=== PATIENT | female | born 1940 | race Caucasian/White ===

== ENCOUNTER 2018-05-31 09:08 | Inpatient (IN) ==
[~2018-05-31 09:08] MED LIST: CEFUROXIME INJ 1,500 MG in SYRINGE 1 EACH IV ONE; CHLORHEXIDINE 4% SOLN 118 ML BOTTLE TOP SCH; DEXTROSE 50% 25 GM/50 ML VIAL IV PRN; GLUCAGON 1 MG VIAL IM PRN
[2018-05-31 10:02] LABS: Basophils # 0.1 10*3/uL (0.0-0.2); Basophils % 0.8 % (0.0-0.8); Eosinophils # 0.6 10*3/uL (0.0-0.87); Eosinophils % 8.5 % (0.00-10.9); Hematocrit 36.8 VOL% (35.7-47.0); Hemoglobin 12.1 GM/DL (12.0-16.0); Immature Granulocytes % 0.4 %; Immature Granulocytes Absolute 0.03 #; Lymphocytes # 1.9 10*3/uL (1.4-4.0); Lymphocytes % 25.2 % (21.3-54.2); Mean Corpuscular HGB Conc 32.9 GM/DL (32-36); Mean Corpuscular Hemoglobin 31 PG (27-34); Mean Corpuscular Volume 93.4 FL (87-102); Mean Platelet Volume 9.6 FL (9.6-12.0); Monocytes # 0.5 10*3/uL (0.11-0.8); Monocytes % 6.7 % (1.7-12.7); Neutrophils # 4.3 10*3/uL (1.4-7.4); Neutrophils % 58.4 % (38.7-73.9); Platelet Count 225 T/CUMM (130-400); Red Blood Count 3.94 MC/CUMM (3.8-5.5); Red Cell Distribution Width 13.2 % (9.3-17.3); White Blood Count 7.3 T/CUMM (4-12)
[2018-05-31 10:30] LABS: Albumin 3.4 G/DL (3.4-5.0); Bilirubin,Total 0.4 MG/DL (0.2-1.0); Calcium 8.8 MG/DL (8.5-10.1); Potassium 3.3 MMOL/L (3.5-5.1); Total Protein 7.5 G/DL (6.4-8.3)
[2018-05-31] MEDS ORDERED: tiZANidine 4 MG TABLET PO PRN (13:00)
[2018-05-31] MEDS ORDERED: LACTATED RINGERS 1,000 ML IV SCH (15:00)
[2018-05-31] MEDS: SODIUM CHLORIDE 0.9% 1,000 ML IV SCH ×3 (17:20→17:24)
[2018-05-31] MEDS: GABAPENTIN 300 MG CAPSULE PO SCH ×6 (17:21→21:20)
[2018-05-31] MEDS: DONEPEZIL 10 MG TABLET PO SCH ×5 (17:21→21:21)
[2018-05-31] MEDS: ESTROGENS (CONJ) 0.3 MG TABLET PO SCH ×4 (17:21→21:22)
[2018-05-31] MEDS: CHLORHEXIDINE 0.12% ORAL RINSE 60 ML BOTTLE SWISH/SPIT SCH ×5 (17:21→22:37)
[2018-05-31] MEDS: CARVEDILOL 3.125 MG TABLET PO SCH ×6 (17:21→21:20)
[2018-05-31] MEDS: ISOSORBIDE MONONITRATE 30 MG TABLET PO SCH ×2 (17:22→17:27)
[2018-05-31] MEDS: MIRTAZAPINE 30 MG TABLET PO SCH ×4 (17:22→21:17)
[2018-05-31] MEDS: LOSARTAN 50 MG TABLET PO SCH ×2 (17:22→17:27)
[2018-05-31] MEDS: LINACLOTIDE 145 MCG CAPSULE PO SCH ×3 (17:22→17:27)
[2018-05-31] MEDS: FLUoxetine 20 MG CAPSULE PO SCH ×4 (17:22→21:21)
[2018-05-31] MEDS: TOPIRAMATE 100 MG TABLET PO SCH ×5 (17:22→21:21)
[2018-05-31] MEDS: LEVOTHYROXINE 100 MCG TABLET PO SCH ×3 (17:23→17:27)
[2018-05-31] MEDS: MESALAMINE 250 MG CAPSULE PO SCH ×3 (17:27→21:22)
[2018-05-31] MEDS: PRAMIPEXOLE 0.25 MG TABLET PO SCH ×2 (17:44→21:18)
[2018-05-31] MEDS: CHLORHEXIDINE 4% SOLN 118 ML BOTTLE TOP SCH ×2 (19:37→21:23)
[2018-05-31] MEDS ORDERED: VERAPAMIL SR 180 MG TABLET PO SCH (21:00)
[2018-06-01] MEDS ORDERED: PAPAVERINE 60 MG/2 ML VIAL ONE (04:43)
[2018-06-01] MEDS ORDERED: VANCOMYCIN 1,000 MG VIAL ONE (04:43)
[2018-06-01] MEDS: CHLORHEXIDINE 4% SOLN 118 ML BOTTLE TOP SCH (04:51)
[2018-06-01] MEDS ORDERED: SUFentanil 250 MCG/5 ML AMP ONE (05:43)
[2018-06-01] MEDS ORDERED: MIDAZOLAM 10 MG/2 ML VIAL ONE (05:44)
[2018-06-01] MEDS ORDERED: DIAZEPAM 5 MG TABLET PO ONE (06:00)
[2018-06-01] MEDS ORDERED: CEFUROXIME INJ 1,500 MG in SYRINGE 1 EACH IV ONE (06:30)
[2018-06-01] MEDS ORDERED: NITROPRUSSIDE 50 MG/2 ML VIAL ONE (07:48)
[2018-06-01 07:49] LABS: ABG Base Excess 0.3 MMOL/L (-2.5-2.5); ABG HCO3 24.7 MMOL/L (20-26); ABG PH 7.376 (7.35-7.45); ABG TCO2 22.9 MMOL/L (23-27); Glucose Heart Surgery 111 MG/DL (74-106); Hematocrit Heart Surgery 36.3 PERCENT (37-47); Hemoglobin Heart Surgery 11.8 G/DL (12.0-16.0); Ionized Calcium Arterial 1.12 MMOL/L (1.21-1.46); PH Patient Temp Arterial 7.376; Patient Temperature 37 CELCIUS; Sodium Heart/CVR 139 MMOL/L (135-145)
[2018-06-01] MEDS ORDERED: POTASSIUM CHLORIDE RIDER 100 ML IV ONE (07:49)
[2018-06-01] MEDS ORDERED: CALCIUM CHLORIDE 1,000 MG/10 ML SYRINGE IV ONE (07:49)
[2018-06-01] MEDS ORDERED: EPINEPHrine 1 MG/10 ML SYRINGE ONE (07:49)
[2018-06-01] MEDS ORDERED: PHENYLEPHRINE DRIP 40 MG/250 ML PREMIX IV ONE (07:49)
[2018-06-01] MEDS ORDERED: ALBUMIN 5% 12.5 GM/250 ML VIAL IV ONE (07:49)
[2018-06-01] MEDS ORDERED: ATROPINE 1 MG/10 ML SYRINGE ONE (07:49)
[2018-06-01 08:26] LABS: Apearance,Urine CLEAR (Clear); Bilirubin,Urine Negative (Negative); Blood, Urine Negative (Negative); Glucose,Urine (UA) Negative (Negative); Ketones,Urine Negative (Negative); Nitrite,Urine Negative (Negative); Protein,Urine Negative; RBC,Urine <1 /HPF (0-4); Squamous Epithelial Cell,Urine Occasional /HPF (0-10); Urine Color Yellow (Yellow); Urine Urobilinogen < 2.0 EU/DL (0.2-1.0); WBC,Urine <1 /HPF (0-6)
[2018-06-01] MEDS ORDERED: ASPIRIN CHEW 81 MG TABLET PO SCH (09:00)
[2018-06-01] MEDS ORDERED: NITROGLYCERIN DRIP 50 MG/250 ML BOTTLE IV ONE (09:23)
[2018-06-01] MEDS ORDERED: PHENYLEPHRINE DRIP 20 MG/250 ML PREMIX IV ONE (09:23)
[2018-06-01] MEDS ORDERED: PHENYLEPHRINE 1 MG/10 ML SYRINGE IV ONE (09:23)
[2018-06-01] MEDS ORDERED: AMINOCAPROIC ACID 5,000 MG/20 ML VIAL IV ONE (09:23)
[2018-06-01] MEDS ORDERED: ePHEDrine 50 MG/ML AMP ONE (09:23)
[2018-06-01] MEDS ORDERED: CALCIUM CHLORIDE 1,000 MG/10 ML VIAL IV ONE (09:23)
[2018-06-01] MEDS ORDERED: HEPARIN/NACL 0.9% 2 UNITS/ML 500 ML IV ONE (09:23)
[2018-06-01] MEDS ORDERED: VECURONIUM 10 MG VIAL IV ONE (09:23)
[2018-06-01] MEDS ORDERED: ETOMIDATE 40 MG/20 ML VIAL IV ONE (09:24)
[2018-06-01] MEDS ORDERED: SUCCINYLCHOLINE 200 MG/10 ML VIAL ONE (09:24)
[2018-06-01 09:29] LABS: Hematocrit Heart Surgery 26.3 PERCENT (37-47); Hemoglobin Heart Surgery 8.5 G/DL (12.0-16.0); Potassium Heart/CVR 3.2 MMOL/L (3.5-5.1); VBG Base Excess 2.3 MEQ/L (0-4); VBG HCO3 26.2 MEQ/L (24-28); VBG Oxygen Saturation 78.3 %; VBG PCO2 42.6 MMHG (41-51); VBG PH 7.412; VBG PO2 42.6 MMHG (17-40)
[2018-06-01 09:30] LABS: PCO2 Patient Temp Venous 38.7 MM HG; PH Patient Temp Venous 7.442; PO2 Patient Temp Venous 37.1 MM HG
[2018-06-01 09:55] LABS: Hematocrit Heart Surgery 24.9 PERCENT (37-47); PCO2 Patient Temp Venous 37.3 MM HG; PH Patient Temp Venous 7.452; Potassium Heart/CVR 3.4 MMOL/L (3.5-5.1); VBG Base Excess 2.2 MEQ/L (0-4); VBG Oxygen Saturation 72.7 %; VBG PH 7.422
[2018-06-01] MEDS ORDERED: SODIUM BICARBONATE 50 MEQ/50 ML SYRINGE IV ONE ×2 (10:32→11:38)
[2018-06-01 10:41] LABS: Hematocrit Heart Surgery 25.2 PERCENT (37-47); Hemoglobin Heart Surgery 8.1 G/DL (12.0-16.0); PCO2 Patient Temp Venous 32.2 MM HG; PH Patient Temp Venous 7.492; PO2 Patient Temp Venous 33.1 MM HG; Potassium Heart/CVR 3.2 MMOL/L (3.5-5.1); VBG Base Excess 1.7 MEQ/L (0-4); VBG HCO3 25.7 MEQ/L (24-28); VBG Oxygen Saturation 78.5 %; VBG PCO2 37.2 MMHG (41-51); VBG PH 7.447; VBG PO2 40.8 MMHG (17-40)
[2018-06-01] MEDS ORDERED: THROMBIN TOPICAL (RECOMBINANT) 5,000 UNIT VIAL TOP ONE (11:05)
[2018-06-01 11:28] LABS: ABG Base Excess -0.6 MMOL/L (-2.5-2.5); ABG HCO3 23.9 MMOL/L (20-26); ABG Oxygen Saturation 98.9 % (95-100); ABG PCO2 43.6 MM HG (35-48); ABG PH 7.363 (7.35-7.45); ABG TCO2 23.3 MMOL/L (23-27); Glucose Heart Surgery 216 MG/DL (74-106); Hematocrit Heart Surgery 23.8 PERCENT (37-47); Hemoglobin Heart Surgery 7.6 G/DL (12.0-16.0); Ionized Calcium Arterial 1.17 MMOL/L (1.21-1.46); PCO2 Patient Temp Arterial 43.6 MMHG; PH Patient Temp Arterial 7.363; Patient Temperature 37 CELCIUS; Potassium Heart/CVR 2.8 MMOL/L (3.5-5.1); Sodium Heart/CVR 137 MMOL/L (135-145)
[2018-06-01] MEDS ORDERED: DEXTROSE 5% KCL 20 MEQ 20 MEQ/1,000 ML BAG IV ONE (11:37)
[2018-06-01] MEDS ORDERED: POTASSIUM CHLORIDE 20 MEQ/10 ML VIAL ONE (11:38)
[2018-06-01] MEDS ORDERED: MANNITOL 12.5 GM/50 ML VIAL IV ONE (11:38)
[2018-06-01] MEDS ORDERED: HEPARIN 10,000 UNIT/10 ML VIAL ONE (11:38)
[2018-06-01] MEDS ORDERED: FUROSEMIDE 20 MG/2 ML VIAL ONE (11:38)
[2018-06-01] MEDS ORDERED: MAGNESIUM SULFATE 10 GM/20 ML VIAL IV ONE (11:38)
[2018-06-01] MEDS ORDERED: PROTAMINE SULFATE 250 MG/25 ML VIAL IV ONE (11:38)
[2018-06-01] MEDS ORDERED: ALBUMIN 25% 25 GM/100 ML VIAL IV ONE (11:38)
[2018-06-01] MEDS ORDERED: methylPREDNISolone SOD SUC 1,000 MG/8 ML VIAL ONE (11:38)
[2018-06-01] MEDS: LACTATED RINGERS 1,000 ML IV PRN ×2 (12:30→16:00)
[2018-06-01] MEDS ORDERED: NITROPRUSSIDE 100 MG in DEXTROSE 5% 250 ML IV PRN (13:00)
[2018-06-01] MEDS ORDERED: MAGNESIUM SULF RIDER 4 GM in PREMIX 1 EACH IV PRN (13:00)
[2018-06-01] MEDS ORDERED: INSULIN REGULAR 100 UNIT/ML IV ONE (13:00)
[2018-06-01] MEDS ORDERED: ONDANSETRON 4 MG/2 ML VIAL IV PRN (13:00)
[2018-06-01] MEDS ORDERED: MORPHINE 4 MG/1 ML VIAL IV PRN (13:00)
[2018-06-01] MEDS ORDERED: ALBUMIN 5% 12.5 GM in PREMIX 1 EACH IV PRN (13:00)
[2018-06-01] MEDS ORDERED: MAGNESIUM SULF RIDER 2 GM in PREMIX 1 EACH IV PRN (13:00)
[2018-06-01] MEDS ORDERED: INSULIN REGULAR 100 UNIT/ML IV PRN (13:00)
[2018-06-01] MEDS ORDERED: PHENYLEPHRINE DRIP 40 MG/250 ML PREMIX IV PRN (13:00)
[2018-06-01] MEDS ORDERED: DEXTROSE 50% 25 GM/50 ML VIAL IV PRN ×2 (13:00)
[2018-06-01] MEDS ORDERED: SODIUM CHLORIDE 0.45% 1,000 ML IV SCH ×2 (13:00)
[2018-06-01] MEDS ORDERED: CALCIUM CHLORIDE 1,000 MG/10 ML SYRINGE IV PRN (13:00)
[2018-06-01] MEDS ORDERED: ACETAMINOPHEN 650 MG SUPP RECTAL PRN (13:00)
[2018-06-01] MEDS ORDERED: LACTATED RINGERS 250 ML IV PRN (13:00)
[2018-06-01] MEDS ORDERED: VECURONIUM 10 MG VIAL IV PRN ×2 (13:00)
[2018-06-01] MEDS ORDERED: MIDAZOLAM 10 MG/2 ML VIAL IV PRN (13:00)
[2018-06-01 13:07] LABS: ABG Base Excess -1.3 MMOL/L (-2.5-2.5); ABG HCO3 23.3 MMOL/L (20-26); ABG Oxygen Saturation 97.8 % (95-100); ABG PCO2 54.7 MM HG (35-48); ABG PH 7.282 (7.35-7.45); ABG TCO2 24.4 MMOL/L (23-27); Glucose Heart Surgery 172 MG/DL (74-106); Hematocrit Heart Surgery 24.5 PERCENT (37-47); Hemoglobin Heart Surgery 7.9 G/DL (12.0-16.0); Potassium Heart/CVR 3.1 MMOL/L (3.5-5.1)
[2018-06-01 13:08] LABS: Basophils % 0.3 % (0.0-0.8); Eosinophils # 0.2 10*3/uL (0.0-0.87); Eosinophils % 1.1 % (0.00-10.9); Hematocrit 23.7 VOL% (35.7-47.0); Hemoglobin 7.7 GM/DL (12.0-16.0); Immature Granulocytes % 0.9 %; Immature Granulocytes Absolute 0.12 #; Lymphocytes % 7.8 % (21.3-54.2); Mean Corpuscular HGB Conc 32.5 GM/DL (32-36); Mean Corpuscular Hemoglobin 31 PG (27-34); Mean Corpuscular Volume 95.2 FL (87-102); Mean Platelet Volume 9.8 FL (9.6-12.0); Monocytes # 0.5 10*3/uL (0.11-0.8); Monocytes % 3.8 % (1.7-12.7); Neutrophils # 11.4 10*3/uL (1.4-7.4); Neutrophils % 86.1 % (38.7-73.9); Platelet Count 255 T/CUMM (130-400); Red Blood Count 2.49 MC/CUMM (3.8-5.5); Red Cell Distribution Width 13.4 % (9.3-17.3); White Blood Count 13.2 T/CUMM (4-12)
[2018-06-01] MEDS ORDERED: SODIUM CHLORIDE 0.9% 1,000 ML IV ONE (13:14)
[2018-06-01] MEDS ORDERED: SODIUM CHLORIDE 0.9% 100 ML IV ONE (13:14)
[2018-06-01] MEDS ORDERED: SEVOFLURANE 1 UNIT/15 MINUTE INH ONE (13:14)
[2018-06-01] MEDS ORDERED: SODIUM CHLORIDE 0.9% 250 ML IV ONE (13:14)
[2018-06-01] MEDS ORDERED: fentaNYL 100 MCG/2 ML VIAL ONE (13:14)
[2018-06-01 13:23] LABS: CKMB % 11.1 %
[2018-06-01 13:26] LABS: Albumin 2.8 G/DL (3.4-5.0); Bilirubin,Total 0.6 MG/DL (0.2-1.0); Calcium 8.2 MG/DL (8.5-10.1); Osmolality,Calculated 290.8 MOS/KG (273-304); Potassium 3.2 MMOL/L (3.5-5.1); Total Protein 5.8 G/DL (6.4-8.3); Troponin I 12.8 NG/ML (0.00-0.045)
[2018-06-01] MEDS: POTASSIUM CHLORIDE RIDER 20 MEQ in PREMIX 1 EACH IV PRN ×3 (13:28→21:59)
[2018-06-01 13:49] LABS: INR 1.5; Partial Thromboplastin Time 38.5 SECS (0-40)
[2018-06-01] MEDS: MIDAZOLAM 2 MG/2 ML VIAL IV PRN ×2 (13:54→15:05)
[2018-06-01] MEDS: POTASSIUM CHLORIDE RIDER 10 MEQ in PREMIX 1 EACH IV PRN (14:32)
[2018-06-01] MEDS: KETOROLAC 30 MG/1 ML VIAL IV SCH ×2 (14:34→19:15)
[2018-06-01 15:06] LABS: ABG Base Excess -1.2 MMOL/L (-2.5-2.5); ABG HCO3 23.4 MMOL/L (20-26); ABG Oxygen Saturation 99.1 % (95-100); ABG PCO2 45.8 MM HG (35-48); ABG TCO2 22.8 MMOL/L (23-27); Glucose Heart Surgery 155 MG/DL (74-106); Hematocrit Heart Surgery 29.2 PERCENT (37-47); Hemoglobin Heart Surgery 9.4 G/DL (12.0-16.0); Potassium Heart/CVR 3.3 MMOL/L (3.5-5.1)
[2018-06-01] MEDS: INSULIN REGULAR DRIP 100 ML IV SCH ×2 (17:21→18:08)
[2018-06-01 17:32] LABS: ABG Base Excess -0.9 MMOL/L (-2.5-2.5); ABG HCO3 23.7 MMOL/L (20-26); ABG Oxygen Saturation 99.4 % (95-100); ABG PCO2 39.3 MM HG (35-48); ABG PH 7.392 (7.35-7.45); ABG TCO2 21.2 MMOL/L (23-27); Glucose Heart Surgery 182 MG/DL (74-106); Hematocrit Heart Surgery 36.5 PERCENT (37-47); Hemoglobin Heart Surgery 11.8 G/DL (12.0-16.0); Potassium Heart/CVR 3.4 MMOL/L (3.5-5.1)
[2018-06-01 18:10] LABS: ABG Base Excess -1.3 MMOL/L (-2.5-2.5); ABG HCO3 23.3 MMOL/L (20-26); ABG Oxygen Saturation 99.1 % (95-100); ABG PCO2 42.7 MM HG (35-48); ABG PH 7.362 (7.35-7.45); ABG TCO2 21.2 MMOL/L (23-27); Glucose Heart Surgery 186 MG/DL (74-106); Hematocrit Heart Surgery 40.7 PERCENT (37-47); Hemoglobin Heart Surgery 13.3 G/DL (12.0-16.0); Potassium Heart/CVR 3.8 MMOL/L (3.5-5.1)
[2018-06-01] MEDS: CEFUROXIME INJ 1,500 MG in SYRINGE 1 EACH IV SCH (20:58)
[2018-06-01] MEDS ORDERED: CHLORHEXIDINE 0.12% ORAL RINSE 60 ML BOTTLE SWISH/SPIT SCH (21:00)
[2018-06-01] MEDS: MORPHINE 10 MG/1 ML VIAL IV PRN (21:48)
[2018-06-01 21:54] LABS: Troponin I 7.34 NG/ML (0.00-0.045)
[2018-06-02] MEDS: KETOROLAC 30 MG/1 ML VIAL IV SCH ×5 (01:09→18:24)
[2018-06-02] MEDS: LACTATED RINGERS 1,000 ML IV PRN (01:30)
[2018-06-02] MEDS ORDERED: FUROSEMIDE 40 MG/4 ML VIAL IV ONE (01:30)
[2018-06-02 04:12] LABS: ABG Base Excess -0.1 MMOL/L (-2.5-2.5); ABG HCO3 24.4 MMOL/L (20-26); ABG Oxygen Saturation 96.9 % (95-100); ABG PCO2 42.3 MM HG (35-48); ABG PH 7.381 (7.35-7.45); ABG PO2 87.5 MM HG (80-95); ABG TCO2 22.9 MMOL/L (23-27); Glucose Heart Surgery 146 MG/DL (74-106); Hematocrit Heart Surgery 31.1 PERCENT (37-47); Potassium Heart/CVR 3.7 MMOL/L (3.5-5.1)
[2018-06-02 04:17] LABS: Basophils % 0.1 % (0.0-0.8); Hemoglobin 9.8 GM/DL (12.0-16.0); Immature Granulocytes % 0.5 %; Immature Granulocytes Absolute 0.06 #; Lymphocytes # 0.7 10*3/uL (1.4-4.0); Lymphocytes % 5.2 % (21.3-54.2); Mean Corpuscular HGB Conc 33.8 GM/DL (32-36); Mean Corpuscular Hemoglobin 31 PG (27-34); Mean Corpuscular Volume 91.8 FL (87-102); Mean Platelet Volume 10.4 FL (9.6-12.0); Monocytes # 0.5 10*3/uL (0.11-0.8); Neutrophils # 11.8 10*3/uL (1.4-7.4); Neutrophils % 90.2 % (38.7-73.9); Platelet Count 186 T/CUMM (130-400); Red Blood Count 3.16 MC/CUMM (3.8-5.5); Red Cell Distribution Width 14.1 % (9.3-17.3); White Blood Count 13.1 T/CUMM (4-12)
[2018-06-02] MEDS: POTASSIUM CHLORIDE RIDER 20 MEQ in PREMIX 1 EACH IV PRN (04:23)
[2018-06-02] MEDS: MORPHINE 10 MG/1 ML VIAL IV PRN (04:27)
[2018-06-02 04:34] LABS: Alanine Aminotransferase 41 U/L (13-56); Albumin 2.9 G/DL (3.4-5.0); Alkaline Phosphatase 58 U/L (45-117); Aspartate Amino Transferase 100 U/L (0-37); Bilirubin,Direct < 0.100 MG/DL (0.0-0.20); Blood Urea Nitrogen 21 MG/DL (7-18); Calcium 7.8 MG/DL (8.5-10.1); Glucose 127 MG/DL (74-106); Osmolality,Calculated 287.1 MOS/KG (273-304); Potassium 4.1 MMOL/L (3.5-5.1); Sodium 142 MMOL/L (136-145); Total Protein 6.1 G/DL (6.4-8.3)
[2018-06-02] MEDS: POTASSIUM CHLORIDE RIDER 10 MEQ in PREMIX 1 EACH IV PRN (04:56)
[2018-06-02 06:04] LABS: CKMB % 7.1 %
[2018-06-02 06:05] LABS: Troponin I 5.2 NG/ML (0.00-0.045)
[2018-06-02] MEDS ORDERED: tiZANidine 4 MG TABLET PO PRN ×2 (06:22→07:01)
[2018-06-02] MEDS ORDERED: MAGNESIUM SULF RIDER 4 GM in PREMIX 1 EACH IV PRN (06:25)
[2018-06-02] MEDS ORDERED: GLUCAGON 1 MG VIAL IM PRN ×2 (06:25)
[2018-06-02] MEDS ORDERED: MAGNESIUM SULF RIDER 2 GM in PREMIX 1 EACH IV PRN (06:25)
[2018-06-02] MEDS ORDERED: ALUMINUM/MAGNES/SIMETH MAX STR 30 ML UDCUP PO PRN (06:25)
[2018-06-02] MEDS ORDERED: DEXTROSE 50% 25 GM/50 ML VIAL IV PRN ×2 (06:25)
[2018-06-02] MEDS ORDERED: LINACLOTIDE 145 MCG CAPSULE PO SCH (07:30)
[2018-06-02] MEDS ORDERED: PRAMIPEXOLE 0.25 MG TABLET PO SCH (09:00)
[2018-06-02] MEDS ORDERED: TOPIRAMATE 100 MG TABLET PO SCH (09:00)
[2018-06-02] MEDS ORDERED: MESALAMINE 250 MG CAPSULE PO SCH (09:00)
[2018-06-02] MEDS ORDERED: DONEPEZIL 10 MG TABLET PO SCH (09:00)
[2018-06-02] MEDS ORDERED: FERROUS SULFATE 325 MG TABLET PO SCH (09:00)
[2018-06-02] MEDS ORDERED: CARVEDILOL 3.125 MG TABLET PO SCH (09:00)
[2018-06-02] MEDS ORDERED: ASPIRIN CHEW 81 MG TABLET PO SCH (09:00)
[2018-06-02] MEDS ORDERED: ISOSORBIDE MONONITRATE 30 MG TABLET PO SCH (09:00)
[2018-06-02] MEDS ORDERED: GABAPENTIN 300 MG CAPSULE PO SCH (09:00)
[2018-06-02] MEDS ORDERED: LOSARTAN 50 MG TABLET PO SCH (09:00)
[2018-06-02] MEDS: MESALAMINE 250 MG CAPSULE PO SCH ×5 (09:18→20:54)
[2018-06-02] MEDS: LEVOTHYROXINE 100 MCG TABLET PO SCH ×2 (09:19→09:58)
[2018-06-02] MEDS: LINACLOTIDE 145 MCG CAPSULE PO SCH ×2 (09:19→09:58)
[2018-06-02] MEDS: ASPIRIN CHEW 81 MG TABLET PO SCH (09:20)
[2018-06-02] MEDS: DOCUSATE SODIUM 100 MG CAPSULE PO SCH (09:20)
[2018-06-02] MEDS: GABAPENTIN 300 MG CAPSULE PO SCH ×4 (09:20→20:55)
[2018-06-02] MEDS: TOPIRAMATE 100 MG TABLET PO SCH ×3 (09:20→20:55)
[2018-06-02] MEDS: PANTOPRAZOLE 40 MG TABLET PO SCH (09:20)
[2018-06-02] MEDS: CARVEDILOL 3.125 MG TABLET PO SCH ×3 (09:20→17:01)
[2018-06-02] MEDS: DONEPEZIL 10 MG TABLET PO SCH ×3 (09:20→20:55)
[2018-06-02] MEDS: PRAMIPEXOLE 0.25 MG TABLET PO SCH ×4 (09:21→20:54)
[2018-06-02] MEDS: CHLORHEXIDINE 0.12% ORAL RINSE 60 ML BOTTLE SWISH/SPIT SCH ×3 (09:23→20:56)
[2018-06-02] MEDS: ISOSORBIDE MONONITRATE 30 MG TABLET PO SCH ×2 (09:27→09:57)
[2018-06-02] MEDS: SODIUM CHLOR 0.45% KCL 20 MEQ 20 MEQ/1,000 ML BAG IV SCH (09:27)
[2018-06-02] MEDS: CHLORHEXIDINE 4% SOLN 118 ML BOTTLE TOP SCH (09:57)
[2018-06-02] MEDS: LOSARTAN 50 MG TABLET PO SCH (09:57)
[2018-06-02] MEDS: CEFUROXIME INJ 1,500 MG in SYRINGE 1 EACH IV SCH ×2 (10:58→20:56)
[2018-06-02] MEDS: oxyCODONE/ACETAMINOPHEN 5-325 MG TABLET PO PRN ×2 (17:00→20:55)
[2018-06-02] MEDS: ZALEPLON 5 MG CAPSULE PO PRN (20:53)
[2018-06-02] MEDS: MIRTAZAPINE 30 MG TABLET PO SCH (20:53)
[2018-06-02] MEDS: VERAPAMIL SR 180 MG TABLET PO SCH (20:54)
[2018-06-02] MEDS: FLUoxetine 20 MG CAPSULE PO SCH (20:55)
[2018-06-02] MEDS: ESTROGENS (CONJ) 0.3 MG TABLET PO SCH (20:55)
[2018-06-02] MEDS ORDERED: VERAPAMIL SR 180 MG TABLET PO SCH (21:00)
[2018-06-02] MEDS ORDERED: FLUoxetine 20 MG CAPSULE PO SCH (21:00)
[2018-06-02] MEDS ORDERED: ESTROGENS (CONJ) 0.3 MG TABLET PO SCH (21:00)
[2018-06-02] MEDS ORDERED: MIRTAZAPINE 30 MG TABLET PO SCH (21:00)
[2018-06-03] MEDS: KETOROLAC 30 MG/1 ML VIAL IV SCH ×4 (01:14→20:57)
[2018-06-03] MEDS: oxyCODONE/ACETAMINOPHEN 5-325 MG TABLET PO PRN (01:14)
[2018-06-03] MEDS: LEVOTHYROXINE 100 MCG TABLET PO SCH (05:58)
[2018-06-03] MEDS ORDERED: FUROSEMIDE 40 MG/4 ML VIAL IV ONE (06:00)
[2018-06-03] MEDS ORDERED: LEVOTHYROXINE 100 MCG TABLET PO SCH (06:30)
[2018-06-03 06:42] LABS: Basophils % 0.1 % (0.0-0.8); Hematocrit 25.5 VOL% (35.7-47.0); Hemoglobin 8.3 GM/DL (12.0-16.0); Immature Granulocytes % 0.7 %; Immature Granulocytes Absolute 0.09 #; Lymphocytes # 1.3 10*3/uL (1.4-4.0); Lymphocytes % 10.7 % (21.3-54.2); Mean Corpuscular HGB Conc 32.5 GM/DL (32-36); Mean Corpuscular Hemoglobin 31 PG (27-34); Mean Corpuscular Volume 95.9 FL (87-102); Mean Platelet Volume 10.6 FL (9.6-12.0); Monocytes # 0.8 10*3/uL (0.11-0.8); Monocytes % 6.4 % (1.7-12.7); Neutrophils # 9.9 10*3/uL (1.4-7.4); Neutrophils % 82.1 % (38.7-73.9); Platelet Count 163 T/CUMM (130-400); Red Blood Count 2.66 MC/CUMM (3.8-5.5); Red Cell Distribution Width 14.3 % (9.3-17.3)
[2018-06-03 07:09] LABS: Alanine Aminotransferase 33 U/L (13-56); Albumin 2.6 G/DL (3.4-5.0); Alkaline Phosphatase 65 U/L (45-117); Aspartate Amino Transferase 61 U/L (0-37); Bilirubin,Direct < 0.100 MG/DL (0.0-0.20); Bilirubin,Indirect 0.5 MG/DL (0.0-1.0); Blood Urea Nitrogen 32 MG/DL (7-18); CKMB % 3.2 %; Calcium 7.4 MG/DL (8.5-10.1); Glucose 146 MG/DL (74-106); Osmolality,Calculated 290.3 MOS/KG (273-304); Potassium 4.2 MMOL/L (3.5-5.1); Sodium 141 MMOL/L (136-145); Total Protein 5.8 G/DL (6.4-8.3)
[2018-06-03] MEDS: LINACLOTIDE 145 MCG CAPSULE PO SCH (07:49)
[2018-06-03] MEDS: GABAPENTIN 300 MG CAPSULE PO SCH ×3 (08:33→20:57)
[2018-06-03] MEDS: ASPIRIN CHEW 81 MG TABLET PO SCH (08:34)
[2018-06-03] MEDS: DOCUSATE SODIUM 100 MG CAPSULE PO SCH (08:34)
[2018-06-03] MEDS: DONEPEZIL 10 MG TABLET PO SCH ×2 (08:34→20:57)
[2018-06-03] MEDS: TOPIRAMATE 100 MG TABLET PO SCH ×2 (08:34→20:58)
[2018-06-03] MEDS: CARVEDILOL 3.125 MG TABLET PO SCH ×2 (08:35→17:08)
[2018-06-03] MEDS: MESALAMINE 250 MG CAPSULE PO SCH ×4 (08:35→21:02)
[2018-06-03] MEDS: ISOSORBIDE MONONITRATE 30 MG TABLET PO SCH (08:35)
[2018-06-03] MEDS: CHLORHEXIDINE 0.12% ORAL RINSE 60 ML BOTTLE SWISH/SPIT SCH ×2 (08:37→20:59)
[2018-06-03] MEDS: PANTOPRAZOLE 40 MG TABLET PO SCH (08:40)
[2018-06-03] MEDS: PRAMIPEXOLE 0.25 MG TABLET PO SCH ×3 (08:40→21:04)
[2018-06-03] MEDS: SODIUM CHLORIDE 0.9% 1,000 ML IV SCH ×2 (20:05→20:06)
[2018-06-03] MEDS: SODIUM CHLOR 0.45% KCL 20 MEQ 20 MEQ/1,000 ML BAG IV SCH (20:06)
[2018-06-03] MEDS: VERAPAMIL SR 180 MG TABLET PO SCH (20:57)
[2018-06-03] MEDS: ZALEPLON 5 MG CAPSULE PO PRN (20:57)
[2018-06-03] MEDS: MIRTAZAPINE 30 MG TABLET PO SCH (20:57)
[2018-06-03] MEDS: FLUoxetine 20 MG CAPSULE PO SCH (20:58)
[2018-06-03] MEDS: ESTROGENS (CONJ) 0.3 MG TABLET PO SCH (20:58)
[2018-06-04] MEDS: KETOROLAC 30 MG/1 ML VIAL IV SCH ×4 (01:36→17:40)
[2018-06-04 05:41] LABS: Basophils % 0.4 % (0.0-0.8); Eosinophils # 0.3 10*3/uL (0.0-0.87); Eosinophils % 3.8 % (0.00-10.9); Hematocrit 24.6 VOL% (35.7-47.0); Hemoglobin 7.9 GM/DL (12.0-16.0); Immature Granulocytes % 0.7 %; Immature Granulocytes Absolute 0.06 #; Lymphocytes # 1.8 10*3/uL (1.4-4.0); Lymphocytes % 20.2 % (21.3-54.2); Mean Corpuscular HGB Conc 32.1 GM/DL (32-36); Mean Corpuscular Hemoglobin 31 PG (27-34); Mean Corpuscular Volume 96.9 FL (87-102); Mean Platelet Volume 10.4 FL (9.6-12.0); Monocytes # 0.7 10*3/uL (0.11-0.8); Monocytes % 7.6 % (1.7-12.7); NRBC # 0.02 10*3/uL; Neutrophils # 6.1 10*3/uL (1.4-7.4); Neutrophils % 67.3 % (38.7-73.9); Platelet Count 162 T/CUMM (130-400); Red Blood Count 2.54 MC/CUMM (3.8-5.5); Red Cell Distribution Width 14.1 % (9.3-17.3)
[2018-06-04 06:00] LABS: Alanine Aminotransferase 35 U/L (13-56); Albumin 2.4 G/DL (3.4-5.0); Alkaline Phosphatase 68 U/L (45-117); Aspartate Amino Transferase 58 U/L (0-37); Bilirubin,Indirect 0.4 MG/DL (0.0-1.0); Blood Urea Nitrogen 30 MG/DL (7-18); Calcium 7.3 MG/DL (8.5-10.1); Glucose 118 MG/DL (74-106); Osmolality,Calculated 289.1 MOS/KG (273-304); Sodium 142 MMOL/L (136-145); Total Protein 5.5 G/DL (6.4-8.3)
[2018-06-04] MEDS: LEVOTHYROXINE 100 MCG TABLET PO SCH (06:00)
[2018-06-04] MEDS: LINACLOTIDE 145 MCG CAPSULE PO SCH (06:28)
[2018-06-04] MEDS: POTASSIUM CHLORIDE 20 MEQ TABLET PO PRN ×2 (06:28→08:56)
[2018-06-04] MEDS: MESALAMINE 250 MG CAPSULE PO SCH ×4 (08:55→21:02)
[2018-06-04] MEDS: PANTOPRAZOLE 40 MG TABLET PO SCH (08:56)
[2018-06-04] MEDS: DOCUSATE SODIUM 100 MG CAPSULE PO SCH (08:56)
[2018-06-04] MEDS: ISOSORBIDE MONONITRATE 30 MG TABLET PO SCH (08:56)
[2018-06-04] MEDS: ASPIRIN CHEW 81 MG TABLET PO SCH (08:56)
[2018-06-04] MEDS: GABAPENTIN 300 MG CAPSULE PO SCH ×3 (08:56→21:02)
[2018-06-04] MEDS: DONEPEZIL 10 MG TABLET PO SCH ×2 (08:56→21:02)
[2018-06-04] MEDS: TOPIRAMATE 100 MG TABLET PO SCH ×2 (08:56→21:03)
[2018-06-04] MEDS: CARVEDILOL 3.125 MG TABLET PO SCH ×2 (08:56→17:12)
[2018-06-04] MEDS: PRAMIPEXOLE 0.25 MG TABLET PO SCH ×3 (09:00→21:03)
[2018-06-04] MEDS: CHLORHEXIDINE 0.12% ORAL RINSE 60 ML BOTTLE SWISH/SPIT SCH ×2 (09:03→21:06)
[2018-06-04] MEDS ORDERED: FUROSEMIDE 40 MG/4 ML VIAL IV ONE (10:11)
[2018-06-04] MEDS: FERROUS SULFATE 325 MG TABLET PO SCH (10:29)
[2018-06-04] MEDS: ACETAMINOPHEN 325 MG TABLET PO PRN (10:29)
[2018-06-04] MEDS: FLUoxetine 20 MG CAPSULE PO SCH (21:02)
[2018-06-04] MEDS: MIRTAZAPINE 30 MG TABLET PO SCH (21:02)
[2018-06-04] MEDS: VERAPAMIL SR 180 MG TABLET PO SCH (21:02)
[2018-06-04] MEDS: ZALEPLON 5 MG CAPSULE PO PRN (21:02)
[2018-06-04] MEDS: ESTROGENS (CONJ) 0.3 MG TABLET PO SCH (21:02)
[2018-06-04] MEDS: oxyCODONE/ACETAMINOPHEN 5-325 MG TABLET PO PRN (21:12)
[2018-06-05] MEDS: KETOROLAC 30 MG/1 ML VIAL IV SCH (00:40)
[2018-06-05 05:37] LABS: Basophils % 0.4 % (0.0-0.8); Eosinophils # 0.7 10*3/uL (0.0-0.87); Eosinophils % 7.2 % (0.00-10.9); Immature Granulocytes % 0.6 %; Immature Granulocytes Absolute 0.06 #; Lymphocytes # 2.1 10*3/uL (1.4-4.0); Lymphocytes % 22.6 % (21.3-54.2); Mean Corpuscular Hemoglobin 31 PG (27-34); Mean Platelet Volume 10.1 FL (9.6-12.0); Monocytes # 0.7 10*3/uL (0.11-0.8); Monocytes % 7.8 % (1.7-12.7); Neutrophils # 5.8 10*3/uL (1.4-7.4); Neutrophils % 61.4 % (38.7-73.9); Platelet Count 198 T/CUMM (130-400); Red Blood Count 2.55 MC/CUMM (3.8-5.5); Red Cell Distribution Width 14.1 % (9.3-17.3); White Blood Count 9.5 T/CUMM (4-12)
[2018-06-05] MEDS: LEVOTHYROXINE 100 MCG TABLET PO SCH (06:01)
[2018-06-05] MEDS: LINACLOTIDE 145 MCG CAPSULE PO SCH (08:00)
[2018-06-05] MEDS ORDERED: INFLUENZA VIRUS VACCINE 0.5 ML SYRINGE IM ONE (09:00)
[2018-06-05] MEDS: PRAMIPEXOLE 0.25 MG TABLET PO SCH ×3 (09:07→21:49)
[2018-06-05] MEDS: DONEPEZIL 10 MG TABLET PO SCH ×2 (09:07→21:50)
[2018-06-05] MEDS: GABAPENTIN 300 MG CAPSULE PO SCH ×3 (09:07→21:49)
[2018-06-05] MEDS: FERROUS SULFATE 325 MG TABLET PO SCH (09:08)
[2018-06-05] MEDS: PANTOPRAZOLE 40 MG TABLET PO SCH (09:08)
[2018-06-05] MEDS: CARVEDILOL 3.125 MG TABLET PO SCH ×2 (09:08→16:34)
[2018-06-05] MEDS: ISOSORBIDE MONONITRATE 30 MG TABLET PO SCH (09:08)
[2018-06-05] MEDS: TOPIRAMATE 100 MG TABLET PO SCH ×2 (09:08→21:49)
[2018-06-05] MEDS: DOCUSATE SODIUM 100 MG CAPSULE PO SCH (09:08)
[2018-06-05] MEDS: ASPIRIN CHEW 81 MG TABLET PO SCH (09:08)
[2018-06-05] MEDS: CHLORHEXIDINE 0.12% ORAL RINSE 60 ML BOTTLE SWISH/SPIT SCH ×2 (09:10→21:54)
[2018-06-05] MEDS: MESALAMINE 250 MG CAPSULE PO SCH ×4 (09:13→21:49)
[2018-06-05] MEDS: oxyCODONE/ACETAMINOPHEN 5-325 MG TABLET PO PRN ×3 (09:17→21:50)
[2018-06-05] MEDS: MIRTAZAPINE 30 MG TABLET PO SCH (21:49)
[2018-06-05] MEDS: VERAPAMIL SR 180 MG TABLET PO SCH (21:49)
[2018-06-05] MEDS: ESTROGENS (CONJ) 0.3 MG TABLET PO SCH (21:49)
[2018-06-05] MEDS: FLUoxetine 20 MG CAPSULE PO SCH (21:50)
[2018-06-06 05:48] LABS: Basophils % 0.3 % (0.0-0.8); Eosinophils # 0.4 10*3/uL (0.0-0.87); Eosinophils % 4.7 % (0.00-10.9); Immature Granulocytes % 0.9 %; Immature Granulocytes Absolute 0.08 #; Lymphocytes # 1.8 10*3/uL (1.4-4.0); Lymphocytes % 19.7 % (21.3-54.2); Mean Corpuscular HGB Conc 30.8 GM/DL (32-36); Mean Corpuscular Hemoglobin 30 PG (27-34); Mean Corpuscular Volume 98.1 FL (87-102); Mean Platelet Volume 9.9 FL (9.6-12.0); Monocytes # 0.8 10*3/uL (0.11-0.8); Monocytes % 8.7 % (1.7-12.7); NRBC # 0.02 10*3/uL; Neutrophils # 6.1 10*3/uL (1.4-7.4); Neutrophils % 65.7 % (38.7-73.9); Platelet Count 252 T/CUMM (130-400); Red Blood Count 2.65 MC/CUMM (3.8-5.5); Red Cell Distribution Width 14.1 % (9.3-17.3); White Blood Count 9.3 T/CUMM (4-12)
[2018-06-06] MEDS: LEVOTHYROXINE 100 MCG TABLET PO SCH (06:06)
[2018-06-06 06:29] LABS: Alanine Aminotransferase 40 U/L (13-56); Albumin 2.5 G/DL (3.4-5.0); Alkaline Phosphatase 77 U/L (45-117); Aspartate Amino Transferase 54 U/L (0-37); Bilirubin,Indirect 0.3 MG/DL (0.0-1.0); Bilirubin,Total < 0.39 MG/DL (0.2-1.0); Blood Urea Nitrogen 17 MG/DL (7-18); Calcium 7.9 MG/DL (8.5-10.1); Glucose 90 MG/DL (74-106); Osmolality,Calculated 284.1 MOS/KG (273-304); Potassium 3.5 MMOL/L (3.5-5.1); Sodium 142 MMOL/L (136-145); Total Protein 5.8 G/DL (6.4-8.3)
[2018-06-06 06:30] LABS: Troponin I 0.761 NG/ML (0.00-0.045)
[2018-06-06] MEDS: ASPIRIN CHEW 81 MG TABLET PO SCH (08:00)
[2018-06-06] MEDS: DOCUSATE SODIUM 100 MG CAPSULE PO SCH (08:00)
[2018-06-06] MEDS: GABAPENTIN 300 MG CAPSULE PO SCH ×3 (08:00→20:52)
[2018-06-06] MEDS: oxyCODONE/ACETAMINOPHEN 5-325 MG TABLET PO PRN ×3 (08:01→20:52)
[2018-06-06] MEDS: PANTOPRAZOLE 40 MG TABLET PO SCH (08:01)
[2018-06-06] MEDS: DONEPEZIL 10 MG TABLET PO SCH ×2 (08:01→20:53)
[2018-06-06] MEDS: LINACLOTIDE 145 MCG CAPSULE PO SCH (08:02)
[2018-06-06] MEDS: ISOSORBIDE MONONITRATE 30 MG TABLET PO SCH (08:02)
[2018-06-06] MEDS: FERROUS SULFATE 325 MG TABLET PO SCH (08:02)
[2018-06-06] MEDS: PRAMIPEXOLE 0.25 MG TABLET PO SCH ×3 (08:02→20:53)
[2018-06-06] MEDS: CARVEDILOL 3.125 MG TABLET PO SCH ×2 (08:02→17:53)
[2018-06-06] MEDS: MESALAMINE 250 MG CAPSULE PO SCH ×4 (08:02→20:58)
[2018-06-06] MEDS: TOPIRAMATE 100 MG TABLET PO SCH ×2 (08:02→20:53)
[2018-06-06] MEDS: CHLORHEXIDINE 0.12% ORAL RINSE 60 ML BOTTLE SWISH/SPIT SCH ×2 (17:58→20:53)
[2018-06-06] MEDS: ESTROGENS (CONJ) 0.3 MG TABLET PO SCH (20:52)
[2018-06-06] MEDS: VERAPAMIL SR 180 MG TABLET PO SCH (20:52)
[2018-06-06] MEDS: ZALEPLON 5 MG CAPSULE PO PRN (20:52)
[2018-06-06] MEDS: MIRTAZAPINE 30 MG TABLET PO SCH (20:53)
[2018-06-06] MEDS: FLUoxetine 20 MG CAPSULE PO SCH (20:53)
[2018-06-07 05:46] LABS: Basophils % 0.5 % (0.0-0.8); Eosinophils # 0.4 10*3/uL (0.0-0.87); Eosinophils % 4.5 % (0.00-10.9); Hematocrit 26.9 VOL% (35.7-47.0); Hemoglobin 8.3 GM/DL (12.0-16.0); Immature Granulocytes % 0.8 %; Immature Granulocytes Absolute 0.07 #; Lymphocytes % 22.6 % (21.3-54.2); Mean Corpuscular HGB Conc 30.9 GM/DL (32-36); Mean Corpuscular Hemoglobin 30 PG (27-34); Mean Corpuscular Volume 98.2 FL (87-102); Mean Platelet Volume 9.4 FL (9.6-12.0); Monocytes # 0.7 10*3/uL (0.11-0.8); Monocytes % 7.7 % (1.7-12.7); NRBC # 0.02 10*3/uL; Neutrophils # 5.5 10*3/uL (1.4-7.4); Neutrophils % 63.9 % (38.7-73.9); Platelet Count 244 T/CUMM (130-400); Red Blood Count 2.74 MC/CUMM (3.8-5.5); Red Cell Distribution Width 14.1 % (9.3-17.3); White Blood Count 8.6 T/CUMM (4-12)
[2018-06-07 05:59] LABS: Alanine Aminotransferase 43 U/L (13-56); Albumin 2.5 G/DL (3.4-5.0); Alkaline Phosphatase 86 U/L (45-117); Aspartate Amino Transferase 46 U/L (0-37); Bilirubin,Direct < 0.100 MG/DL (0.0-0.20); Bilirubin,Indirect 0.3 MG/DL (0.0-1.0); Blood Urea Nitrogen 13 MG/DL (7-18); Calcium 8.3 MG/DL (8.5-10.1); Glucose 109 MG/DL (74-106); Osmolality,Calculated 283.1 MOS/KG (273-304); Potassium 3.4 MMOL/L (3.5-5.1); Sodium 142 MMOL/L (136-145); Total Protein 6.2 G/DL (6.4-8.3)
[2018-06-07] MEDS: LINACLOTIDE 145 MCG CAPSULE PO SCH (06:38)
[2018-06-07] MEDS: LEVOTHYROXINE 100 MCG TABLET PO SCH (06:38)
[2018-06-07] MEDS: oxyCODONE/ACETAMINOPHEN 5-325 MG TABLET PO PRN ×3 (06:52→20:28)
[2018-06-07] MEDS: ASPIRIN CHEW 81 MG TABLET PO SCH (10:05)
[2018-06-07] MEDS: POTASSIUM CHLORIDE 20 MEQ TABLET PO PRN ×3 (10:05→14:56)
[2018-06-07] MEDS: TOPIRAMATE 100 MG TABLET PO SCH ×2 (10:06→20:28)
[2018-06-07] MEDS: PANTOPRAZOLE 40 MG TABLET PO SCH (10:06)
[2018-06-07] MEDS: GABAPENTIN 300 MG CAPSULE PO SCH ×3 (10:06→20:28)
[2018-06-07] MEDS: DOCUSATE SODIUM 100 MG CAPSULE PO SCH (10:06)
[2018-06-07] MEDS: FERROUS SULFATE 325 MG TABLET PO SCH (10:06)
[2018-06-07] MEDS: ISOSORBIDE MONONITRATE 30 MG TABLET PO SCH (10:09)
[2018-06-07] MEDS: MESALAMINE 250 MG CAPSULE PO SCH ×4 (10:09→20:27)
[2018-06-07] MEDS: PRAMIPEXOLE 0.25 MG TABLET PO SCH ×3 (10:09→20:27)
[2018-06-07] MEDS: DONEPEZIL 10 MG TABLET PO SCH ×2 (10:09→20:27)
[2018-06-07] MEDS: CARVEDILOL 3.125 MG TABLET PO SCH ×2 (10:09→17:05)
[2018-06-07] MEDS: ONDANSETRON 4 MG/2 ML VIAL IV PRN ×2 (11:33→23:24)
[2018-06-07] MEDS: CHLORHEXIDINE 0.12% ORAL RINSE 60 ML BOTTLE SWISH/SPIT SCH ×2 (18:36→20:27)
[2018-06-07] MEDS ORDERED: FUROSEMIDE 40 MG/4 ML VIAL IV ONE (19:46)
[2018-06-07] MEDS: VERAPAMIL SR 180 MG TABLET PO SCH (20:27)
[2018-06-07] MEDS: MIRTAZAPINE 30 MG TABLET PO SCH (20:27)
[2018-06-07] MEDS: ZALEPLON 5 MG CAPSULE PO PRN (20:27)
[2018-06-07] MEDS: ESTROGENS (CONJ) 0.3 MG TABLET PO SCH (20:28)
[2018-06-07] MEDS: FLUoxetine 20 MG CAPSULE PO SCH (20:28)
[2018-06-07] MEDS: MAGNESIUM HYDROXIDE SUSP 30 ML UDCUP PO PRN (21:12)
[2018-06-08] MEDS: MAGNESIUM HYDROXIDE SUSP 30 ML UDCUP PO PRN (06:00)
[2018-06-08] MEDS: LEVOTHYROXINE 100 MCG TABLET PO SCH (06:00)
[2018-06-08] MEDS: LINACLOTIDE 145 MCG CAPSULE PO SCH (06:37)
[2018-06-08] MEDS: MESALAMINE 250 MG CAPSULE PO SCH ×4 (10:12→21:12)
[2018-06-08] MEDS: PANTOPRAZOLE 40 MG TABLET PO SCH (10:12)
[2018-06-08] MEDS: PRAMIPEXOLE 0.25 MG TABLET PO SCH ×3 (10:13→21:12)
[2018-06-08] MEDS: FERROUS SULFATE 325 MG TABLET PO SCH (10:13)
[2018-06-08] MEDS: oxyCODONE/ACETAMINOPHEN 5-325 MG TABLET PO PRN (10:14)
[2018-06-08] MEDS: ISOSORBIDE MONONITRATE 30 MG TABLET PO SCH (10:14)
[2018-06-08] MEDS: GABAPENTIN 300 MG CAPSULE PO SCH ×3 (10:14→21:12)
[2018-06-08] MEDS: CARVEDILOL 3.125 MG TABLET PO SCH ×2 (10:17→17:54)
[2018-06-08] MEDS: POTASSIUM CHLORIDE 20 MEQ TABLET PO PRN (10:17)
[2018-06-08] MEDS: ASPIRIN CHEW 81 MG TABLET PO SCH (10:18)
[2018-06-08] MEDS: TOPIRAMATE 100 MG TABLET PO SCH ×2 (10:18→21:13)
[2018-06-08] MEDS: DOCUSATE SODIUM 100 MG CAPSULE PO SCH (10:19)
[2018-06-08] MEDS: DONEPEZIL 10 MG TABLET PO SCH ×2 (10:19→21:13)
[2018-06-08] MEDS: CHLORHEXIDINE 0.12% ORAL RINSE 60 ML BOTTLE SWISH/SPIT SCH ×2 (10:20→21:24)
[2018-06-08] MEDS ORDERED: POLYETHYLENE GLYCOL POWDER 17 GM PACK PO PRN (10:44)
[2018-06-08] MEDS: ALBUTEROL/IPRATROPIUM 3 ML NEB RESP TX PRN (13:56)
[2018-06-08] MEDS ORDERED: SODIUM CHLORIDE 0.9% 500 ML IV ONE ×2 (14:19→17:55)
[2018-06-08] MEDS ORDERED: LEVOFLOXACIN INJ 500 MG in PREMIX 1 EACH IV ONE (14:20)
[2018-06-08] MEDS ORDERED: KETOROLAC 30 MG/1 ML VIAL IV PRN (14:21)
[2018-06-08] MEDS: FLUoxetine 20 MG CAPSULE PO SCH (21:13)
[2018-06-08] MEDS: VERAPAMIL SR 180 MG TABLET PO SCH (21:13)
[2018-06-08] MEDS: MIRTAZAPINE 30 MG TABLET PO SCH (21:13)
[2018-06-08] MEDS: ESTROGENS (CONJ) 0.3 MG TABLET PO SCH (21:24)
[2018-06-09] MEDS: LEVOTHYROXINE 100 MCG TABLET PO SCH (06:01)
[2018-06-09] MEDS: ALBUTEROL/IPRATROPIUM 3 ML NEB RESP TX PRN (08:00)
[2018-06-09] MEDS: LINACLOTIDE 145 MCG CAPSULE PO SCH (09:53)
[2018-06-09] MEDS: MESALAMINE 250 MG CAPSULE PO SCH ×4 (09:54→22:32)
[2018-06-09] MEDS: DONEPEZIL 10 MG TABLET PO SCH ×2 (09:56→22:29)
[2018-06-09] MEDS: ISOSORBIDE MONONITRATE 30 MG TABLET PO SCH (09:56)
[2018-06-09] MEDS: PRAMIPEXOLE 0.25 MG TABLET PO SCH ×3 (09:57→22:30)
[2018-06-09] MEDS: CARVEDILOL 3.125 MG TABLET PO SCH ×2 (09:57→16:04)
[2018-06-09] MEDS: FERROUS SULFATE 325 MG TABLET PO SCH (09:57)
[2018-06-09] MEDS: ASPIRIN CHEW 81 MG TABLET PO SCH (09:57)
[2018-06-09] MEDS: PANTOPRAZOLE 40 MG TABLET PO SCH (09:57)
[2018-06-09] MEDS: DOCUSATE SODIUM 100 MG CAPSULE PO SCH (09:57)
[2018-06-09] MEDS: GABAPENTIN 300 MG CAPSULE PO SCH ×3 (09:58→22:30)
[2018-06-09] MEDS: CHLORHEXIDINE 0.12% ORAL RINSE 60 ML BOTTLE SWISH/SPIT SCH ×2 (10:00→22:34)
[2018-06-09] MEDS: TOPIRAMATE 100 MG TABLET PO SCH ×2 (10:04→22:29)
[2018-06-09] MEDS: ACETAMINOPHEN 325 MG TABLET PO PRN (16:03)
[2018-06-09] MEDS: FLUoxetine 20 MG CAPSULE PO SCH (22:29)
[2018-06-09] MEDS: ESTROGENS (CONJ) 0.3 MG TABLET PO SCH (22:33)
[2018-06-09] MEDS: VERAPAMIL SR 180 MG TABLET PO SCH (22:42)
[2018-06-09] MEDS: MIRTAZAPINE 30 MG TABLET PO SCH (22:42)
[2018-06-09] MEDS: ALBUTEROL/IPRATROPIUM 3 ML NEB RESP TX SCH (22:56)
[2018-06-10] MEDS: ALBUTEROL/IPRATROPIUM 3 ML NEB RESP TX SCH ×5 (02:19→20:07)
[2018-06-10] MEDS: LEVOTHYROXINE 100 MCG TABLET PO SCH (06:42)
[2018-06-10] MEDS: ASPIRIN CHEW 81 MG TABLET PO SCH (09:18)
[2018-06-10] MEDS: DONEPEZIL 10 MG TABLET PO SCH ×2 (09:18→21:40)
[2018-06-10] MEDS: MESALAMINE 250 MG CAPSULE PO SCH ×4 (09:18→22:00)
[2018-06-10] MEDS: ISOSORBIDE MONONITRATE 30 MG TABLET PO SCH (09:19)
[2018-06-10] MEDS: GABAPENTIN 300 MG CAPSULE PO SCH ×3 (09:19→21:40)
[2018-06-10] MEDS: TOPIRAMATE 100 MG TABLET PO SCH ×2 (09:19→21:40)
[2018-06-10] MEDS: PANTOPRAZOLE 40 MG TABLET PO SCH (09:20)
[2018-06-10] MEDS: DOCUSATE SODIUM 100 MG CAPSULE PO SCH (09:20)
[2018-06-10] MEDS: CARVEDILOL 3.125 MG TABLET PO SCH ×2 (09:20→18:38)
[2018-06-10] MEDS: FERROUS SULFATE 325 MG TABLET PO SCH (09:20)
[2018-06-10] MEDS: PRAMIPEXOLE 0.25 MG TABLET PO SCH ×3 (09:21→21:39)
[2018-06-10] MEDS: LINACLOTIDE 145 MCG CAPSULE PO SCH (09:21)
[2018-06-10] MEDS: CHLORHEXIDINE 0.12% ORAL RINSE 60 ML BOTTLE SWISH/SPIT SCH ×2 (09:24→21:41)
[2018-06-10] MEDS: FUROSEMIDE 40 MG TABLET PO SCH (12:00)
[2018-06-10] MEDS: ACETAMINOPHEN 325 MG TABLET PO PRN ×2 (14:21→20:04)
[2018-06-10] MEDS: THEOPHYLLINE ER 300 MG TABLET PO SCH (18:37)
[2018-06-10] MEDS: BUDESONIDE/FORMOTEROL 80-4.5 INHALER 6.9 GM INH SCH ×2 (19:18→21:38)
[2018-06-10] MEDS: VERAPAMIL SR 180 MG TABLET PO SCH (21:40)
[2018-06-10] MEDS: ZALEPLON 5 MG CAPSULE PO PRN (21:40)
[2018-06-10] MEDS: FLUoxetine 20 MG CAPSULE PO SCH (21:41)
[2018-06-10] MEDS: ESTROGENS (CONJ) 0.3 MG TABLET PO SCH (21:41)
[2018-06-10] MEDS: MIRTAZAPINE 30 MG TABLET PO SCH (22:00)
[2018-06-11] MEDS: ALBUTEROL/IPRATROPIUM 3 ML NEB RESP TX SCH ×7 (00:51→23:26)
[2018-06-11] MEDS: LEVOTHYROXINE 100 MCG TABLET PO SCH (06:26)
[2018-06-11] MEDS: BUDESONIDE/FORMOTEROL 80-4.5 INHALER 6.9 GM INH SCH ×2 (08:38→21:57)
[2018-06-11] MEDS: PANTOPRAZOLE 40 MG TABLET PO SCH (08:39)
[2018-06-11] MEDS: THEOPHYLLINE ER 300 MG TABLET PO SCH ×2 (08:39→18:07)
[2018-06-11] MEDS: MESALAMINE 250 MG CAPSULE PO SCH ×4 (08:39→21:57)
[2018-06-11] MEDS: DONEPEZIL 10 MG TABLET PO SCH ×2 (08:39→21:50)
[2018-06-11] MEDS: TOPIRAMATE 100 MG TABLET PO SCH ×2 (08:40→21:51)
[2018-06-11] MEDS: GABAPENTIN 300 MG CAPSULE PO SCH ×3 (08:40→21:51)
[2018-06-11] MEDS: CARVEDILOL 3.125 MG TABLET PO SCH ×2 (08:41→18:08)
[2018-06-11] MEDS: FERROUS SULFATE 325 MG TABLET PO SCH (08:41)
[2018-06-11] MEDS: ISOSORBIDE MONONITRATE 30 MG TABLET PO SCH (08:41)
[2018-06-11] MEDS: PRAMIPEXOLE 0.25 MG TABLET PO SCH ×3 (08:41→21:50)
[2018-06-11] MEDS: DOCUSATE SODIUM 100 MG CAPSULE PO SCH (08:41)
[2018-06-11] MEDS: ASPIRIN CHEW 81 MG TABLET PO SCH (08:42)
[2018-06-11] MEDS: LINACLOTIDE 145 MCG CAPSULE PO SCH (08:42)
[2018-06-11] MEDS: FUROSEMIDE 40 MG TABLET PO SCH (08:46)
[2018-06-11] MEDS: ACETAMINOPHEN 325 MG TABLET PO PRN ×2 (12:34→22:08)
[2018-06-11] MEDS: CHLORHEXIDINE 0.12% ORAL RINSE 60 ML BOTTLE SWISH/SPIT SCH ×2 (15:03→21:51)
[2018-06-11] MEDS: ESTROGENS (CONJ) 0.3 MG TABLET PO SCH (21:50)
[2018-06-11] MEDS: MIRTAZAPINE 30 MG TABLET PO SCH (21:51)
[2018-06-11] MEDS: FLUoxetine 20 MG CAPSULE PO SCH (21:51)
[2018-06-11] MEDS: ZALEPLON 5 MG CAPSULE PO PRN (21:51)
[2018-06-11] MEDS: VERAPAMIL SR 180 MG TABLET PO SCH (21:57)
[2018-06-12] MEDS: ALBUTEROL/IPRATROPIUM 3 ML NEB RESP TX SCH ×2 (03:54→07:09)
[2018-06-12] MEDS: LEVOTHYROXINE 100 MCG TABLET PO SCH (06:22)
[2018-06-12 08:41] VITALS: BP 149/78
[2018-06-12] MEDS: PRAMIPEXOLE 0.25 MG TABLET PO SCH (08:46)
[2018-06-12] MEDS: MESALAMINE 250 MG CAPSULE PO SCH (08:46)
[2018-06-12] MEDS: DOCUSATE SODIUM 100 MG CAPSULE PO SCH (08:46)
[2018-06-12] MEDS: CARVEDILOL 3.125 MG TABLET PO SCH (08:46)
[2018-06-12] MEDS: PANTOPRAZOLE 40 MG TABLET PO SCH (08:46)
[2018-06-12] MEDS: FERROUS SULFATE 325 MG TABLET PO SCH (08:46)
[2018-06-12] MEDS: DONEPEZIL 10 MG TABLET PO SCH (08:47)
[2018-06-12] MEDS: TOPIRAMATE 100 MG TABLET PO SCH (08:47)
[2018-06-12] MEDS: ACETAMINOPHEN 325 MG TABLET PO PRN (08:47)
[2018-06-12] MEDS: GABAPENTIN 300 MG CAPSULE PO SCH (08:47)
[2018-06-12] MEDS: ASPIRIN CHEW 81 MG TABLET PO SCH (08:47)
[2018-06-12] MEDS: ISOSORBIDE MONONITRATE 30 MG TABLET PO SCH (08:47)
[2018-06-12] MEDS: FUROSEMIDE 40 MG TABLET PO SCH (08:47)
[2018-06-12] MEDS: THEOPHYLLINE ER 300 MG TABLET PO SCH (08:48)
[2018-06-12] MEDS: LINACLOTIDE 145 MCG CAPSULE PO SCH (08:48)
[2018-06-12] MEDS: BUDESONIDE/FORMOTEROL 80-4.5 INHALER 6.9 GM INH SCH (08:58)
[2018-06-12] MEDS: CHLORHEXIDINE 0.12% ORAL RINSE 60 ML BOTTLE SWISH/SPIT SCH (08:58)
== END 2018-06-12 11:33 | disposition home health service (06) | DRG 236 ==
LOC: N.4E 09:08 → N.CVR 06-01 07:19 → N.ICU 06-02 10:25 → N.TELES 06-02 13:03